=== PATIENT | female | born 1975 | race Caucasian/White ===

== ENCOUNTER 2016-11-05 08:06 | Emergency (ER) | payer OTHER ==
[~2016-11-05] VITALS: Ht 165.1 cm; Wt 72.6 kg
[2016-11-05 09:49] LABS: ABSOLUTE BASOPHIL COUNT 0 /CUMM (0.0-0.2); ABSOLUTE EOSINOPHIL COUNT 0 /CUMM (0.0-0.7); ABSOLUTE GRANULOCYTE CT 13.1 /CUMM (1.4-6.5); ABSOLUTE LYMPH COUNT 0.7 /CUMM (1.2-3.4); ABSOLUTE MONOCYTE COUNT 0.6 /CUMM (0.10-0.60); BASOPHIL % 0 % (0.0-2.0); EOSINOPHIL % 0 % (0-5); HEMATOCRIT 40.7 % (37-47); PLATELET COUNT 179 /CUMM (130-400); RED BLOOD CELL CT 4.47 /CUMM (4.20-5.40); WHITE BLOOD CELL COUNT 14.4 /CUMM (4.8-10.8)
[2016-11-05 09:50] LABS: GRANULOCYTE % 90.8 % (42.2-75.2)
--- NOTE | 2016-11-05 10:58 | ED GI/GU/ABDOMINAL COMPLAINT ---
History of Present Illness General Chief Complaint: Abdominal Pain/Flank Pain Stated Complaint: LEFT SIDE FLANK PAIN Source: patient, family Exam Limitations: no limitations Allergies Coded Allergies: NO KNOWN ALLERGIES (11/05/16) Reconcile Medications Ketorolac Tromethamine 10 MG TABLET 1 TAB PO Q6P PRN pain pt treated with iv toradol in ED. Oxycodone HCl/Acetaminophen (Percocet 5-325 MG Tablet) 5 MG-325 MG TABLET 1-2 TAB PO Q6P PRN pain Triage Note: PT TO ED C/O LEFT LOWER BACK PAIN SINCE 22OO LAST NIGHT. C/O ABD PAIN AND VOMITING ALL NIGHT. DENIES DIARRHEA. Triage Nurses Notes Reviewed? yes ? n Is pt currently ? No HPI: This is a 40-year-old female with no significant past medical history who comes in for chief complaint of left-sided back pain and abdominal pain. She states that the pain varies in severity. It started last night around 10 PM and gradually worsened to a 10 out of 10 sharp pain in her back that radiates to the front and to her abdomen. The pain was associated with nausea, and vomiting several times. Pain gradually remitted to 5-8 but did escalate back to 10 for short periods of time. Abdominal pain is now gradually becoming more generalized and diffuse in her lower quadrants. However it is more left-sided. Patient states she's had poor by mouth intake secondary to nausea and vomiting. One week ago she went to a walk-in clinic for similar pain at that time patient states the usual a showed "blood in her urine." Patient has not noticed any gross hematuria or hematochezia. Additionally, on November 01, patient stated she woke up due to urinary incontinence. She states this is new and has never occured before. No subsequent episodes. During the episdoe she did not experience pain. Patient denies any fever, headache, night sweats, chest pain, shortness of breath, hematuria, hematochezia, exotic food ingestion, sick contact, no recent travel. Patient does report that she is sexually active with a single male partner, she denies any missed menstrual periods. (DARLINE ODONNELL,CLARA) Vital Signs & Intake/Output Vital Signs & Intake/Output Vital Signs Date Time Temp Pulse Resp B/P Pulse O2 O2 Flow FiO2 Ox Delivery Rate 11/05 1430 96.9 82 18 146/68 99 Room Air 11/05 1238 97.8 80 18 136/70 98 Room Air 11/05 0814 97.9 80 20 125/81 99 Room Air Past History Travel History Traveled to [place] past 21 day No Medical History Any Pertinent Medical History? none Surgical History Surgical History: non-contributory Psychosocial History What is your primary language Indonesian Tobacco Use: Quit >30 days ago ETOH Use: denies use Illicit Drug Use: denies illicit drug use Family History Hx Contributory? No (CLARA GREGORIO MD) Review of Systems Review of Systems Constitutional: Reports: chills, malaise. Denies: diaphoresis, fever, weakness. EENTM: Reports: no symptoms. Denies: blurred vision. Respiratory: Reports: no symptoms. Cardiovascular: Denies: chest pain, palpitations. GI: Reports: abdominal pain, nausea, vomiting. Denies: constipation, diarrhea, melena. Genitourinary: Reports: no symptoms. Musculoskeletal: Reports: no symptoms. Skin: Reports: no symptoms. (CLARA GREGORIO MD) Physical Exam Physical Exam General Appearance: well developed/nourished, no apparent distress, alert, awake , comfortable Head: atraumatic, normal appearance Eyes: Bilateral: normal appearance. Ears, Nose, Throat, Mouth: hearing grossly normal Neck: supple Respiratory: chest non-tender, no respiratory distress, lungs clear Cardiovascular: regular rate/rhythm Gastrointestinal: soft Rectal: deferred Core Measures ACS in differential dx? No Severe Sepsis Present: No Septic Shock Present: No (CLARA GREGORIO MD) Progress Differential Diagnosis: kidney stone, ovarian cyst, UTI/pyelo Initial ED EKG: none (CLARA GREGORIO MD) Plan of Care: Orders Procedure Date/time Status Add-on Test (ER Only) 11/05 1104 Active URINALYSIS 11/05 1030 Complete HUMAN BETA HCG SCREEN 11/05 0936 Complete COMPREHENSIVE METABOLIC PANEL 11/05 0935 Complete CBC WITHOUT DIFFERENTIAL 11/05 0935 Complete Laboratory Tests 11/05/16 1037: Urine Color YEL, Urine Clarity CLDY H, Urine pH 8.5 H, Ur Specific [place] 1.020, Urine Protein 100 H, Urine Ketones NEG, Urine Nitrite NEG, Urine Bilirubin NEG, Urine Urobilinogen 0.2, Ur Leukocyte Esterase LARGE H, Ur Microscopic SEDIMENT EXAMINED, Urine RBC 25-50 H, Urine WBC > 75 H, Ur Epithelial Cells MANY H, Urine Bacteria MANY H, Urine Hemoglobin LARGE H, Urine Glucose NEG 11/05/16 0936: Anion Gap 12, Estimated GFR 56 L, BUN/Creatinine Ratio 20.9, Glucose 133 H, Calcium 9.7, Total Bilirubin 0.8, AST 23, ALT 27, Alkaline Phosphatase 95, Total Protein 8.0, Albumin 4.4, Globulin 3.6, Albumin/Globulin Ratio 1.2, Total Beta HCG NEGATIVE, CBC w Diff MAN DIFF ORDERED, RBC 4.47, MCV 91.0, MCH 31.0, RDW 13.0, MPV 10.0, Gran % 90.8 H, Lymphocytes % 5.0 L, Monocytes % 4.2, Eosinophils % 0, Basophils % 0 L, Absolute Granulocytes 13.1 H, Absolute Lymphocytes 0.7 L, Absolute Monocytes 0.6, Absolute Eosinophils 0, Absolute Basophils 0, Platelet Estimate ADEQUATE, Normocytic RBCs VERIFIED, Normochromic RBCs VERIFIED, PUBS MCHC 34.0 CBC, and UA show white count of 14 and large leukocyte esterase, hemoglobin and white count. At this time cannot rule out UTI versus stone. Will obtain CT without contrast of abdomen and pelvis for further evaluation. CT shows multiple stones and some hydro-nephrosis along with swelling of the left kidney. At this time we will contact intelligence operations urologist for further guidance on treatment. Spoke with Dr. Mireles, pt is hemodynamically stable and well enough to leave ED. She will follow up with Dr. Mireles tomorrow at 8am for same day ESWL. (DARLINE ODONNELL,[facility]) Departure Departure Disposition: HOME OR SELF CARE Condition: Stable Clinical Impression Primary Impression: UTI (urinary tract infection) Secondary Impressions: Nephrolithiasis Referrals: MARSHA Lopez,ANAYELI FLORES (PCP/Family) ENRIQUE MIRELES MD Additional Instructions: 1. You are scheduled for a stone-breaking procedure tomorrow with Dr. Mireles. 2. You MUST be NPO past-midnight, which means no food or drink after midnight. 3. Abstain from sexual relations from now until the procedure with Dr. Mireles 4. Tomorrow at 8am call Dr. Joy office at [phone] to be added onto the schedule. Departure Forms: Customer Survey General Discharge Information (DARLINE ODONNELL,CLARA) Departure Prescriptions: Current Visit Scripts Oxycodone HCl/Acetaminophen (Percocet 5-325 MG Tablet) 1-2 TAB PO Q6P PRN pain #20 TAB Ketorolac Tromethamine 1 TAB PO Q6P PRN pain #16 TAB pt treated with iv toradol in ED. Resident Co-Sign Statement Statement: ED Attending supervision documentation- [X] I saw and evaluated the patient. I have also reviewed all the pertinent lab results and diagnostic results. I agree with the findings and the plan of care as documented in the Resident's documentation. [] I have reviewed the ED Record and agree with the Resident's documentation. [] Additions or exceptions (if any) to the Resident's note and plan are summarized below: [] (TREVON ODONNELL,ELLIOT Clark)
--- NOTE | 2016-11-05 12:11 | CT SCAN REPORT ---
EXAMINATION: CT ABDOMEN AND PELVIS WITHOUT CONTRAST CLINICAL INFORMATION: Renal colic and renal insufficiency. COMPARISON: None TECHNIQUE: Multidetector volumetric imaging was performed from the superior aspect of the liver through the pubic symphysis. Sagittal and coronal reformatted images were obtained on the technologist's workstation. DLP: 282 mGy-cm FINDINGS: LUNG BASES: The visualized lung bases are unremarkable. LIVER, GALLBLADDER, AND BILIARY TREE: Unremarkable. PANCREAS: Unremarkable. SPLEEN: Unremarkable. ADRENAL GLANDS: Unremarkable. KIDNEYS AND URETERS: There is a 0.3 cm calyceal stone within the lower pole of the right kidney. There are a few calyceal stones within the upper pole of the left kidney, largest measuring up to 0.4 cm. There is mild left hydronephrosis with periureteral and perinephric edema. The distal left ureter is difficult to visualize throughout its course in the lower pelvis as it travels around the region of the uterus/adnexa. Phleboliths are present within the lower pelvis, but there are one or two calcifications identified along the expected course of the distal ureter. There might be a 0.4 cm calculus within the distal ureter just above the level of the ureterovesical junction. Possible 0.3 cm calculus within the ureter, as well. BLADDER: Unremarkable. GASTROINTESTINAL TRACT: No evidence of inflammation or obstruction along the gastrointestinal tract. No ascites or pneumoperitoneum. ABDOMINAL WALL: No significant findings. LYMPH NODES: No pathologic sized lymph nodes within the abdomen or pelvis. VASCULAR: Abdominal aorta is normal in caliber. No retroperitoneal hematoma. PELVIC VISCERA: The uterus is anteflexed. The ovaries are grossly normal for noncontrast CT imaging exam. There is no gross evidence for adnexal mass. No pathologic fluid collection within the pelvis. OSSEOUS STRUCTURES: Unremarkable. IMPRESSION: Bilateral nephrolithiasis. Mild left hydronephrosis with perinephric and periureteral edema likely caused by a 0.4 calculus (or two calculi) of the distal ureter.
[2016-11-05] MEDS ORDERED: KETOROLAC TROME10 M1 PO (14:15)
[2016-11-05] MEDS ORDERED: PERCOCET 5-3251 EACH PO (14:15)
[2016-11-05 14:30] VITALS: BP 146/68
== END 2016-11-05 14:30 ==
LOC: ERH 08:06
PROVIDERS: Student in an Organized Health Care Education/Training Program
DX: N39.0 Urinary tract infection, site not specified (principal); N20.0 Calculus of kidney
CPT/HCPCS: 74176; 81001; 96361; 96374; 96375; J0696; J1885

== ENCOUNTER → 2016-11-06 | Day surgery (SDC) | payer OTHER ==
[~2016-11-06] VITALS: Ht 162.6 cm; Wt 72.6 kg
[~2016-11-06] MED LIST: KETOROLAC TROME10 M1 PO; PERCOCET 5-3251 EACH PO
--- NOTE | 2016-11-06 12:57 | Cons- Urology ---
General Information and HPI Consulting Request Date of Consult: 11/06/16 Requested By: DO MILLER GREGORY-E.R. Reason for Consult: SEVERE RENAL COLIC-LEFT;WITH HYDRONEPHROSIS Source of Information: patient, old records Exam Limitations: no limitations History of Present Illness: 40 YR OLD with first episode of kidney stones. Patient was seen in the emergency room yesterday with severe renal colic on the left side controlled with IV medicine, and CAT scan performed. CT was reviewed with the patient. Patient with severe left hYDRONEPHROSIS due to ureter stone. As discussed with the patient, cystoscopy left stent insertion with left ureter ESWL is in order. Risks benefits and alternatives were discussed with the patient and she wishes to proceed. Allergies/Medications Allergies: Coded Allergies: NO KNOWN ALLERGIES (11/05/16) Home Med List: Ketorolac Tromethamine 10 MG TABLET 1 TAB PO Q6P PRN pain pt treated with iv toradol in ED. Oxycodone HCl/Acetaminophen (Percocet 5-325 MG Tablet) 5 MG-325 MG TABLET 1-2 TAB PO Q6P PRN pain Past History Medical History Blood Transfusion Hx: No Psychosocial History Where Do You Live? Home Who Do You Live With? spouse Primary Language: Togolese Illicit Drug Use: denies illicit drug use Functional Ability ADLs Independent: dressing, eating, toileting, bathing. Ambulation: independent IADLs Independent: shopping, housework, finances, food prep, telephone, transportation , medication admin. Employment History Retired? no Review of Systems Review of Systems Constitutional: Reports: see HPI. EENTM: Denies: no symptoms. Cardiovascular: Denies: no symptoms. Respiratory: Denies: no symptoms. GI: Reports: bloating. Musculoskeletal: Denies: no symptoms. Exam & Diagnostic Data Vital Signs and I&O Intake & Output 11/06 1600 11/06 0800 11/06 0000 11/05 1600 11/05 0800 11/05 0000 Intake Total Output Total Balance Patient 160 lb Weight Physical Exam General Appearance: well developed/nourished, no apparent distress Head: atraumatic Neck: normal inspection Respiratory: normal breath sounds Cardiovascular: regular rate/rhythm Gastrointestinal: normal bowel sounds Back: CVA tenderness (L) Extremities: normal inspection Skin: intact, normal color, warm/dry Last 24 Hours of Labs: Laboratory Tests 11/06 1153 Urines Urine Test NEGATIVE Imaging Results: PATIENT: JÚNIOR GONZALEZ PRESENT AGE: 40 PATIENT ACCOUNT NO: [id number] : 77 LOCATION: [facility] ORDERING PHYSICIAN: CLARA GREGORIO MD SERVICE DATE: 11/05/164829 EXAM TYPE: CAT - CT ABD & PELVIS W/O IV CONTRAS EXAMINATION: CT ABDOMEN AND PELVIS WITHOUT CONTRAST CLINICAL INFORMATION: Renal colic and renal insufficiency. COMPARISON: None TECHNIQUE: Multidetector volumetric imaging was performed from the superior aspect of the liver through the pubic symphysis. Sagittal and coronal reformatted images were obtained on the technologist's workstation. DLP: 282 mGy-cm FINDINGS: LUNG BASES: The visualized lung bases are unremarkable. LIVER, GALLBLADDER, AND BILIARY TREE: Unremarkable. PANCREAS: Unremarkable. SPLEEN: Unremarkable. ADRENAL GLANDS: Unremarkable. KIDNEYS AND URETERS: There is a 0.3 cm calyceal stone within the lower pole of the right kidney. There are a few calyceal stones within the upper pole of the left kidney, largest measuring up to 0.4 cm. There is mild left hydronephrosis with periureteral and perinephric edema. The distal left ureter is difficult to visualize throughout its course in the lower pelvis as it travels around the region of the uterus/adnexa. Phleboliths are present within the lower pelvis, but there are one or two calcifications identified along the expected course of the distal ureter. There might be a 0.4 cm calculus within the distal ureter just above the level of the ureterovesical junction. Possible 0.3 cm calculus within the ureter, as well. BLADDER: Unremarkable. GASTROINTESTINAL TRACT: No evidence of inflammation or obstruction along the gastrointestinal tract. No ascites or pneumoperitoneum. ABDOMINAL WALL: No significant findings. LYMPH NODES: No pathologic sized lymph nodes within the abdomen or pelvis. VASCULAR: Abdominal aorta is normal in caliber. No retroperitoneal hematoma. PELVIC VISCERA: The uterus is anteflexed. The ovaries are grossly normal for noncontrast CT imaging exam. There is no gross evidence for adnexal mass. No pathologic fluid collection within the pelvis. OSSEOUS STRUCTURES: Unremarkable. IMPRESSION: Bilateral nephrolithiasis. Mild left hydronephrosis with perinephric and periureteral edema likely caused by a 0.4 calculus (or two calculi) of the distal ureter. Assessment/Plan Assessment/Plan LEFT URETER STONE WITH HYDRO./LEFT URETER ESWL AND STENT INSERTION Copies To: HELEN ODONNELL,ENRIQUE Consult Acknowledgment - Thank you for your consult request. Attending MD Review Statement Attending Statement Attending MD Statement: examined this patient Attending Assessment/Plan: LEFT ESWL STENT
--- NOTE | 2016-11-06 15:05 | Operative Report ---
Operative/Inv Procedure Report Surgery Date: 11/06/16 Name of Procedure: left ureter ESWL, cytoscopy with right stent insertion. fluoroscopy Pre-Operative Diagnosis: left UVJ stone with severe hydro. Post-Operative Diagnosis: same Estimated Blood Loss: scant Surgeon/Web Marketing Coordinator: ENRIQUE CERVANTES MD Anesthesia: local monitored anesthesi Complications: none Operative/Procedure Note Note: The patient was taken to the operating room and placed on the ESWL table in supine position. With the patient awake, the patient's left flank was placed over the table cut-out, overlying the dome of the shockwave generator. C-arm fluroscopy, as well as renal US was used to locate the stone, and evaluate the left kidney. The stone was visible on fluroloscopy at the level of the UVJ. Renal US confimred moderate hydronephrosis with and additional stone seen in the UP of the kidney. The left ureter stone was approximate 6 mm in size, and it's position for ESWL was optimized with fluoroscopy using AP and Oblique views. After adequate anesthesia and antibiotics, the left ureter E.S.W.L. was initiated at low power levels x200 shocks. After noting the patient's tolerance to the shockwaves, the shockwave power level was quickly maximumized. Toward the end of the procedure, the composition of the stone had changed significantly indicating the pulverization of the ureter stone. A total of 3000 shockwaves were delivered to the stone in order to achieve adequate lithotrypsy. The patient was then frog legged, draped and prepped in the usual surgical fashion. A 22 [place] cystoscope sheath with a 30 angle lens was inserted into the urethra and into the bladder without difficulty. Upon entering the bladder the bladder was noted to be free of tumor free of stone both orifices in orthotopic position. The left orifice was intubated with a 0.035 Glidewire which advanced into the left renal pelvis without significant difficulty. Railroaded over this Glidewire was a 6 x 22 Bard inlay stent. The stent was advanced into the left kidney without difficulty. Once the proximal coil reach the left renal pelvis, the Glidewire was removed and the stent remained in proper place; both fluoroscopically and cystoscopically. The bladder was then drained, and the cystoscope was removed. The patient tolerated both procedures well, was awakened, and taken to recovery in satisfactory condition via stretcher. The pt will eventually be dischared to home with pain meds, diet orders, and intructions to catch fragments with straining the urine. The patient is to have follow-up renal ultrasound and KUB in 2 weeks, prior to follow-up visit in my office.. Discharge Disposition: PACU Additional Comments: f/u 2-4 weeks for stent removal and f/u KUB CC: HELEN ODONNELL,ENRIQUE
== END ==
LOC: STS 07:00
DX: N13.2 Hydronephrosis with renal and ureteral calculous obstruction (principal)
CPT/HCPCS: 81025; C2617; J2250; J2405

== ENCOUNTER → 2016-12-04 | Day surgery (SDC) | payer OTHER ==
[~2016-12-04] VITALS: Ht 162.6 cm; Wt 72.6 kg
--- NOTE | 2016-12-04 10:38 | Operative Report ---
Operative/Inv Procedure Report Surgery Date: 12/04/16 Name of Procedure: right renal ESWL: cystoscopy and LEFT stent removal. Pre-Operative Diagnosis: bilateral renal stones: left stent Post-Operative Diagnosis: same Estimated Blood Loss: scant Surgeon/Hr Intern: ENRIQUE CERVANTES MD Anesthesia: moderate sedation Specimens: old left stent Complications: none Operative/Procedure Note Note: The patient was taken to the operating room and placed on the ESWL table in supine position. The patient's right flank was positioned over the table cut- out overlying the dome of the treatment head. Timeout was performed, with the patient awake, in order to confirm the correct identity, side, anesthesia, procedure and other pertinent catarina-operative information. The patient was then anesthesized. Once the patient was adequately sedated, fluoroscopy, as well as Renal ultrasound was used to locate the right renal stone. Renal US was used to confirm the placement of the stone, and measured it to be approximately 8 mm in size at the right renal pelvis. Additionally, renal U/S revealed no hydronephrosis, and no solid tumor. With the stone's position optimized, using AP and oblique fluoroscopy views, the right renal E.S.W.L. was initiated at low energy level. After noting the patient's tolerance to the shockwaves, the intensitiy was ramped up to maximum level. At the end of the procedure, the composition of the right renal stone had changed significantly, indicating the shattering of the renal stone. Of note, a total of 2500 shockwaves were delivered to the stones. The patient tolerated the ESWL procedure well. The patient was then frog-leg, draped, and prepped, in the usual surgical fashion. A 22 [place] cystoscope sheath with 30 angle lens was then inserted into the bladder without difficulty. The left stent was grasped with an alligator forcep, and the cystoscope, along with entire stent, was removed without difficulty. Was awakened, then taken to recovery in satisfactory condition via stretcher. The patient was dischared home with pain medications, diet orders, and intructions to catch fragments by straining the urine. The patient to to have follow-up renal ultrasound and KUB in 1 to 2 weeks, prior to follow-up visit in my office. Discharge Disposition: Same Day Admissions CC: ENRIQUE CERVANTES MD
== END ==
LOC: STS 02:56
DX: N20.0 Calculus of kidney (principal)
CPT/HCPCS: 81025